=== PATIENT | male | born 1975 | race Caucasian/White ===

== ENCOUNTER 2021-01-26 03:42 | Emergency (ER) | payer SELFPAY ==
[~2021-01-26] VITALS: Ht 188 cm; Wt 109.0 kg
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
[2021-01-26 04:30] VITALS: BP 149/94
[2021-01-26] MEDS ORDERED: LIDOCAINE 2%, 20ML SQ ONE (04:30)
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
--- NOTE | 2021-01-26 05:56 | NUR ---
PT AMBULATED TO DISCHARGE DESK. NO QUESTIONS AT TIME OF DEPARTURE.
== END 2021-01-26 05:58 | disposition home or self-care (01) ==
LOC: ED 05:50
DX: L03.012 Cellulitis of left finger (principal); F17.200 Nicotine dependence, unspecified, uncomplicated
CPT/HCPCS: 10060; 99283